=== PATIENT | male | born 1980 | race Caucasian/White ===

== ENCOUNTER 2017-07-09 21:10 | Emergency (ER) | payer BC ==
[~2017-07-09] VITALS: Ht 180.3 cm; Wt 108.9 kg
[2017-07-09 21:29] VITALS: BP 140/89
== END 2017-07-09 22:42 | disposition home or self-care (01) ==
LOC: ER 21:16
DX: T16.1XXA Foreign body in right ear, initial encounter (principal); X58.XXXA Exposure to other specified factors, initial encounter; Y93.89 Activity, other specified; Y99.8 Other external cause status; Y92.89 Other specified places as the place of occurrence of the external cause
CPT/HCPCS: 69200